=== PATIENT | male | born 1960 | race Caucasian/White ===

== ENCOUNTER 2017-05-15 07:58 | Day surgery (SDC) | payer OTHER ==
[2017-05-11 10:53] VITALS: BMI 27.1
[2017-05-15] MEDS ORDERED: PROPOFOL 20 ML ONE ×2 (08:01)
[2017-05-15] MEDS ORDERED: LIDOCAINE HCL/PF 2% SDV 5ML VIAL ONE (08:05)
[2017-05-15 10:27] VITALS: BP 120/70; PULSE 59; TEMP 97.8
--- NOTE | 2017-05-18 12:44 | PATH ---
Surgical Pathology Report Patient Name: ALICIA HUNT [facility]. Rec. #: [id number] /Age/Gender: 1960 (Age: 57) / M Account: [id number] Location: [facility]ENDOS[facility] Taken: 05/15/2017 Received: 05/15/2017 Reported: 05/18/2017 Physicians: Barry Bernard M.D. Specimen(s) Received A: CECUM B: 25CM C: 16CM D: 14CM Clinical History Rule out colon cancer Postoperative diagnosis: Polyps Final Diagnosis A. CECUM, POLYP, POLYPECTOMY: TUBULAR ADENOMA. B. COLON, 25 CM, POLYPS, POLYPECTOMY: TUBULAR ADENOMA (1). HYPERPLASTIC POLYP (1). C. COLON, 16 CM, POLYP, POLYPECTOMY: TUBULAR ADENOMA. D. COLON, 14 CM, POLYP, POLYPECTOMY: TUBULAR ADENOMA. Electronically Signed Angelica Guardado M.D. Gross Description A. Received in formalin, labeled "cecum" is a preston, irregular portion of soft tissue measuring 0.3 cm. in greatest dimension. The specimen is submitted in toto in one cassette. B. Received in formalin labeled "25 cm," are 2 preston, polypoid portions of soft tissue measuring 1.1 x 0.5 x 0.3 cm and 1.2 x 0.7 x 0.4 cm. The larger polyp is bisected and the specimen is entirely submitted in 2 cassettes as follows: 1-one whole polyp; 2-one whole bisected polyp. C. Received in formalin, labeled "16 cm" is a preston, irregular portion of soft tissue measuring 0.3 cm. in greatest dimension. The specimen is submitted in toto in one cassette. D. Received in formalin labeled "14 cm," is a 0.9 x 0.6 x 0.3 cm preston, polypoid portion of soft tissue. The specimen is submitted in toto in one cassette. 05/15/201705/15/2017
== END 2017-05-15 10:27 | disposition home or self-care (01) ==
LOC: FASU-ENDO 07:58
PROVIDERS: ATTEND Internal Medicine Gastroenterology
PROC: 3E0H8GC Introduction of Other Therapeutic Substance into Lower GI, Via Natural or Artificial Opening Endoscopic (ICD-10-PCS; 2017-05-15)
PROC: 0DBH8ZX Excision of Cecum, Via Natural or Artificial Opening Endoscopic, Diagnostic (ICD-10-PCS; principal; 2017-05-15 08:32)
PROC: 0DBN8ZX Excision of Sigmoid Colon, Via Natural or Artificial Opening Endoscopic, Diagnostic (ICD-10-PCS; 2017-05-15 08:32)
DX: Z12.11 Encounter for screening for malignant neoplasm of colon (principal); K57.30 Diverticulosis of large intestine without perforation or abscess without bleeding; D12.0 Benign neoplasm of cecum; D12.3 Benign neoplasm of transverse colon; K63.5 Polyp of colon
CPT/HCPCS: 88305-TC

== ENCOUNTER 2018-12-12 11:03 | Day surgery (SDC) | payer OTHER ==
[2018-12-11 13:23] VITALS: BMI 27.1
[2018-12-12] MEDS ORDERED: LIDOCAINE HCL 1% PRESERVATIVE FREE - 30ML VIAL ONE (11:35)
[2018-12-12] MEDS ORDERED: BUPIVACAINE HCL/PF 0.5% (5MG/ML) 10 ML VIAL ONE (11:35)
[2018-12-12] MEDS ORDERED: PROPOFOL 20 ML ONE ×4 (12:08→13:29)
[2018-12-12] MEDS ORDERED: fentaNYL CITRATE 250 MCG/5 ML VIAL ONE (12:08)
[2018-12-12] MEDS ORDERED: MIDAZOLAM HCL 2 MG/2 ML SINGLE DOSE VIAL ONE ×2 (12:08→12:54)
[2018-12-12] MEDS ORDERED: ROCURONIUM BROMIDE 50 MG/5 ML SYRINGE ONE (12:08)
[2018-12-12] MEDS ORDERED: SUCCINYLCHOLINE CHLORIDE 200 MG/10 ML SYRINGE ONE (12:51)
[2018-12-12] MEDS ORDERED: ceFAZolin SODIUM 1 GM VIAL ONE (12:55)
[2018-12-12] MEDS ORDERED: ONDANSETRON 4 MG/2 ML VIAL IVPUSH PRN (14:11)
[2018-12-12] MEDS ORDERED: oxyCODONE HCL 5 MG TABLET PO PRN ×2 (14:11)
[2018-12-12] MEDS ORDERED: LACTATED RINGERS SOLUTION 1,000 ML IV SCH (14:15)
--- NOTE | 2018-12-12 14:24 | OP ---
Operative Note - Note: Operative Date: 12/12/18 Pre-Operative Diagnosis: Recurrent bilateral inguinal hernias Operation: Bilateral inguinal hernia repair Post-Operative Diagnosis: Same as Pre-op Surgeon: Yamila Fountain Coding Specialist Home Health: Getachew Sim Anesthesia: MAC Estimated Blood Loss (mls): 5 Operative Report Dictated: Yes
--- NOTE | 2018-12-12 14:25 | SURG ---
Surgery Foreign [employer] Note Foreign [employer]ic: Getachew Sim PA-C Date of Service: 12/12/18 Diagnosis: Recurrent bilateral inguinal hernias Procedure: Bilateral inguinal hernia repair I was present for the entirety of the operative procedure. For further detail, please refer to operative report.
[2018-12-12] MEDS ORDERED: oxyCODONE HCL 5 MG TABLET ONE (15:24)
[2018-12-12 15:56] VITALS: PULSE 61
[2018-12-12 16:23] VITALS: BP 131/74; TEMP 98
--- NOTE | 2018-12-12 17:59 | OP ---
DATE OF OPERATION: 12/12/2018 PREOPERATIVE DIAGNOSIS: Bilateral inguinal hernia, recurrent. POSTOPERATIVE DIAGNOSIS: Bilateral inguinal hernia, recurrent. PROCEDURE: Bilateral repair of inguinal hernia with mesh. SURGEON: Claudia Fountain MD [employer] AGENT: FREDY ANESTHESIA: Local sedation. Patient had bilateral inguinal hernia repair as a child. Now presents with bilateral inguinal hernia, more on the left than on the right side, and the patient was brought to the operating room. Intravenous antibiotic was given. IV sedation was also done. Local with Marcaine was injected in the previous scar, and external oblique was opened. Spermatic cord structures were isolated and encircled with the vessel loop. On the left side, there was a direct and hernia sac, which was dissected from the spermatic cord structure and placed back into the abdominal cavity following which plug and a mesh were used, and the plug was used for the posterior defect, and the mesh was used for the posterior wall, which was sutured to the pubic tubercle medially, conjoint tendon upwards, reflected part of the inguinal ligament on the bottom, and around the spermatic cord to form a new ring. It was put inside the external oblique aponeurosis, which was then closed over the mesh and the spermatic cord structure. Bilateral repair was done the same way. External oblique was then closed with 0 Vicryl. Subcutaneous tissue and skin were closed and patient went to the recovery room in stable condition. CLAUDIA FOUNTAIN M.D. [id number]
== END 2018-12-12 16:47 | disposition home or self-care (01) ==
LOC: FASU 11:03
PROVIDERS: ATTEND Surgery Vascular Surgery
PROC: 0YUA0JZ Supplement Bilateral Inguinal Region with Synthetic Substitute, Open Approach (ICD-10-PCS; principal; 2018-12-12 13:02)
DX: K40.21 Bilateral inguinal hernia, without obstruction or gangrene, recurrent (principal)
CPT/HCPCS: 94760

== ENCOUNTER 2020-12-19 10:50 | Emergency (ER) | payer OTHER ==
[2020-12-19 11:09] VITALS: BP 133/86; PULSE 66; TEMP 97.9; BMI 26.4
[2020-12-19] MEDS ORDERED: ACETAMINOPHEN 500 MG TABLET (FP) PO ONE (11:40)
[2020-12-19] MEDS ORDERED: ACETAMINOPHEN 325 MG TABLET (FP) ONE (11:44)
[2020-12-19] MEDS ORDERED: KETOROLAC TROMETHAMINE 30 MG/1 ML VIAL IM ONE (12:38)
[2020-12-19] MEDS ORDERED: KETOROLAC TROMETHAMINE 30 MG/1 ML VIAL ONE (12:50)
== END 2020-12-19 12:55 | disposition home or self-care (01) ==
LOC: FER 10:50
PROC: 3E0233Z Introduction of Anti-inflammatory into Muscle, Percutaneous Approach (ICD-10-PCS; principal; 2020-12-19)
DX: S93.491A Sprain of other ligament of right ankle, initial encounter (principal); W18.49XA Other slipping, tripping and stumbling without falling, initial encounter; X50.0XXA Overexertion from strenuous movement or load, initial encounter
CPT/HCPCS: 73610-TC-RT-FY; 73630-TC-RT-FY; 99284-25